=== PATIENT | male | born 1960 | race Caucasian/White ===

== ENCOUNTER 2016-10-14 13:25 | Day surgery (SDC) | payer BC ==
[2016-10-14] MEDS ORDERED: LIDOCAINE 2% MDV (20MG/ML) 20ML VIAL IV ONE (14:00)
[2016-10-14] MEDS ORDERED: PROPOFOL 10 MG/ML VIAL IV ONE (14:00)
[2016-10-14] MEDS ORDERED: MIDAZOLAM HCL 2MG/2ML VIAL IV ONE (14:00)
--- NOTE | 2016-10-16 11:59 | Operative Note ---
DATE OF SURGERY: 10/14/2016 OPERATION: COLONOSCOPY. PREOPERATIVE DIAGNOSIS: Personal history of colon polyps. POSTOPERATIVE DIAGNOSIS: Negative exam. PREPARATION QUALITY: Excellent. ESTIMATED BLOOD LOSS: None. SPECIMENS: None. COMPLICATIONS: None. PROCEDURE: After informed consent was obtained from the patient, he was placed in the left lateral decubitus position in the endoscopy suite, sedated and monitored by the department of anesthesia. Digital rectal exam was unremarkable. A well-lubricated [id number] colonoscope was inserted into the rectum and advanced to the cecum. Preparation quality was excellent. The cecum, cecal bulb, ileocecal valve, appendiceal orifice, ascending colon, transverse colon, descending colon, sigmoid colon, and rectum were carefully inspected in retrograde fashion. No polyps, mass lesions, inflammation, or diverticula were seen. Forward and J-turn views of the rectum and anorectum were unremarkable. The endoscope was straightened, the rectal ampulla deflated, and the endoscope was removed. RECOMMENDATIONS: The patient should resume his medications and diet. Due to his polyp history, I would recommend a repeat exam in 5 years. As always, thank you for allowing me to participate in the healthcare of your patients. CC: TESSA [facility]
== END 2016-10-14 15:39 | disposition home or self-care (01) ==
LOC: HOP 13:25
PROVIDERS: ATTEND Internal Medicine Gastroenterology
DX: Z86.010 Personal history of colon polyps (principal); E78.00 Pure hypercholesterolemia, unspecified